=== PATIENT | female | born 1995 | race Two or more races ===

== ENCOUNTER 2017-04-26 10:52 | Outpatient (CLI) | payer OTHER | END 2017-04-26 11:11 | disposition home or self-care (01) | LOC: RAD 501 10:52 | DX: M41.125 Adolescent idiopathic scoliosis, thoracolumbar region (principal) ==

== ENCOUNTER 2018-04-26 08:47 | Outpatient (CLI) | payer OTHER | END 2018-04-26 09:26 | disposition home or self-care (01) | LOC: RAD 501 08:47 | DX: M41.125 Adolescent idiopathic scoliosis, thoracolumbar region (principal) ==